=== PATIENT | female | born 1970 | race Hispanic/Latino ===

== ENCOUNTER → 2022-02-28 | Outpatient (CLI) | payer BC | END | disposition home or self-care (01) | LOC: RAH 07:41 | PROVIDERS: ATTEND Nurse Practitioner Family | DX: Z12.31 Encounter for screening mammogram for malignant neoplasm of breast (principal) | CPT/HCPCS: 77067 ==

== ENCOUNTER 2022-10-01 17:36 | Emergency (ER) | payer BC ==
[~2022-10-01] VITALS: Ht 175.3 cm; Wt 106.6 kg
[2022-10-01 17:37] VITALS: BP 159/92
[2022-10-01] MEDS ORDERED: KETOROLAC 30MG VIAL (30MG/ML) IVP ONE (18:00)
[2022-10-01] MEDS ORDERED: FAMOTIDINE 20MG VIAL IV ONE (18:00)
[2022-10-01] MEDS ORDERED: METOCLOPRAMIDE 10 MG/2 ML VIAL IVP ONE (18:00)
[2022-10-01] MEDS ORDERED: KETOROLAC 30MG VIAL (30MG/ML) ONE (18:03)
[2022-10-01 18:05] LABS: HEMATOCRIT 35.6 % (36-48); MEAN CORPUSCULAR HEMOGLOBIN 30.1 pg (27.0-33.0); MEAN CORPUSCULAR HGB CONC 33.4 g/dL (32.0-36.0); MEAN CORPUSCULAR VOLUME 89.9 fL (79-99); RED BLOOD CELL COUNT(AUTO) 3.96 MIL/uL (4.00-5.50); RED CELL DISTRIBUTION WIDTH 12.3 % (11.0-15.5); WHITE BLOOD COUNT (AUTO) 7.5 K/uL (4.8-10.8)
[2022-10-01 18:15] LABS: CREATININE 0.9 mg/dL (0.5-1.5); POTASSIUM 4.1 mmol/L (3.5-5.1)
[2022-10-01 18:19] LABS: ALBUMIN 4.2 g/dL (3.5-5.0); TOTAL PROTEIN, SERUM 7.2 g/dL (6.0-8.3)
[2022-10-01 18:58] LABS: APPEARANCE,URINE CLOUDY (CLEAR); BILIRUBIN,URINE NEGATIVE (NEGATIVE); COLOR,URINE LIGHT-YELLOW (YELLOW); GLUCOSE, URINE (UA) NEGATIVE (NEGATIVE); KETONES,URINE NEGATIVE (NEGATIVE); LEUKOCYTE ESTERASE ,URINE 75 Leu/uL (NEGATIVE); NITRATE,URINE NEGATIVE (NEGATIVE); OCCULT BLOOD,URINE LARGE (NEGATIVE); PROTEIN,URINE 20 mg/dL (NEGATIVE); UROBILINOGEN,URINE 0.2 mg/dL (0.2-1.0)
[2022-10-01 19:10] LABS: BACTERIA,URINE RARE /HPF (None Seen); CALCIUM OXALATE CRYSTALS,UR RARE /LPF (None Seen); MUCUS,URINE RARE LPF (None Seen); RBC,URINE 51-100 /HPF (0-1); SQUAMOUS EPITHELIAL CELL,UR FEW /HPF (0-2); WBC,URINE 26-50 /HPF (0-1)
[2022-10-01] MEDS ORDERED: ONDA-104 PO (20:44)
[2022-10-01] MEDS ORDERED: LIDOCAINE HCL-MPF 2% 5ML VIAL ONE (20:44)
[2022-10-01] MEDS ORDERED: IBUP-1493 PO (20:44)
== END 2022-10-01 22:05 | disposition home or self-care (01) ==
LOC: EDH 17:36
DX: N20.1 Calculus of ureter (principal); R10.32 Left lower quadrant pain; E78.00 Pure hypercholesterolemia, unspecified; Z90.710 Acquired absence of both cervix and uterus
CPT/HCPCS: 99284; 74176; 96374; 96375; 80053; 83690; 85027; 87088; 81001; 36415; J3490 ×2; J1885; J2765

== ENCOUNTER → 2023-02-20 | Outpatient (CLI) | payer BC ==
[~2023-02-20] MED LIST: IBUP-1493 PO; ONDA-104 PO
== END | disposition home or self-care (01) ==
LOC: RAH 16:10
PROVIDERS: ATTEND Nurse Practitioner Family
DX: Z12.31 Encounter for screening mammogram for malignant neoplasm of breast (principal)
CPT/HCPCS: 77067

== ENCOUNTER → 2023-09-11 | Outpatient (CLI) | payer OTHER | END | disposition home or self-care (01) | LOC: OIH 13:34 | PROVIDERS: ATTEND Nurse Practitioner Family | DX: Z13.6 Encounter for screening for cardiovascular disorders (principal) | CPT/HCPCS: 75571 ==

== ENCOUNTER → 2025-03-03 | Outpatient (CLI) | payer BC | END | disposition home or self-care (01) | LOC: RAH 08:29 | PROVIDERS: ATTEND Nurse Practitioner Family | DX: Z12.31 Encounter for screening mammogram for malignant neoplasm of breast (principal) | CPT/HCPCS: 77067 ==